=== PATIENT | female | born 1990 | race Caucasian/White ===

== ENCOUNTER 2021-09-19 16:48 | Emergency (ER) | payer MEDICAID ==
[2021-09-19 18:05] LABS: ESTIMATED GFR 102 mL/min (>60); TROPONIN I HIGH SENSITIVITY 4.4 pg/mL (<=60.3)
== END 2021-09-19 18:21 | disposition home or self-care (01) ==
LOC: JP.ED 16:48
DX: R07.89 Other chest pain (principal); R00.2 Palpitations; Z88.6 Allergy status to analgesic agent
CPT/HCPCS: 71046; 71046-26; 80053; 84484; 85025; 85379; 86617; 86617-59; 86618; 93005; 99285